=== PATIENT | female | born 1955 | race Caucasian/White ===

== ENCOUNTER 2018-05-05 09:33 | Emergency (ER) | payer BC ==
[~2018-05-05] VITALS: Ht 167.6 cm; Wt 81.6 kg
[2018-05-05] MEDS ORDERED: NKM (09:47)
--- NOTE | 2018-05-05 09:56 | Emergency Room Report ---
History of Present Illness General Chief Complaint: Lower Extremity Injury Source: Patient Present Illness HPI Patient presents with complaints of left ankle pain Reports that she was standing outside of a restaurant when she was turning and tripped over the curb falling to the ground Patient noticed increased swelling and pain to the left ankle on the outside aspect Patient has had multiple problems on that foot and ankle Denies any knee pain denies any other lapse of consciousness or upper extremity pain Pain is worse with ambulation and bearing weight this happened about an hour prior to arrival Allergies: Coded Allergies: No Known Allergies (Unverified , 05/05/18) Patient History Past Medical History: see triage record Pertinent Family History: none Last Menstrual Period: 15 years ago Now: No Reviewed Nursing Documentation: PMH: Agreed; PSxH: Agreed Nursing Documentation-PMH Past Medical History: No History, Except For Hx Cardiac Problems: No - osteoporosis Review of Systems All Other Systems: negative except mentioned in HPI Physical Exam Vital Signs Date Time Temp Pulse Resp B/P (MAP) Pulse Ox O2 Delivery O2 Flow Rate FiO2 05/05/18 09:42 97.7 79 16 138/87 94 Room Air Sp02 EP Interpretation: reviewed, normal General Appearance: well appearing, no apparent distress Head: normocephalic, atraumatic Eyes: bilateral eye PERRL, bilateral eye EOMI ENT: normal pharynx Neck: supple Respiratory: lungs clear, no retraction, no accessory muscle use Cardiovascular #1: regular rate, rhythm Gastrointestinal: non tender, soft Musculoskeletal: swelling - To the left ankle mild ecchymosis, neurovascularly intact Neurologic: alert, oriented x3 Skin: other - As above Lymphatic: no adenopathy Procedures Splinting Splinting : Consent: Verbal Pre-Made Type: aircast Splint: sugar-tong Pre-Proc Neuro Vasc Exam: normal Post-Proc Neuro Vasc Exam: normal Patient Tolerated: Well Complications: None Medical Decision Making Diagnostic Impression: Primary Impression: Ankle fracture ER Course Given the patient's history and examination x-ray imaging was obtained There is evidence of a distal fibular fracture Patient was provided with a splint nonweightbearing and requires close outpatient follow-up Other X-Ray Diagnostic Results Other X-Ray Diagnostic Results : X-Ray ordered: Left ankle # of Views/Limited Vs Complete: 3 View Indication: Pain EP Interpretation: Yes Interpretation: no dislocation, other - Distal fibular fracture, nondisplaced Impression: Other - Acute distal fibular fracture Electronically Signed by: Siria Waller DO Last Vital Signs Date Time Temp Pulse Resp B/P (MAP) Pulse Ox O2 Delivery O2 Flow Rate FiO2 05/05/18 09:42 97.7 79 16 138/87 94 Room Air Status: improved Disposition: HOME, SELF-CARE Condition: Improved Scripts Ibuprofen* (MOTRIN*) 600 Mg Tablet 600 MG ORAL Q8H PRN for For Pain, #20 TAB 0 Refills Prov: Siria Waller DO 05/05/18 Additional Instructions: Patient is provided with the discharge instructions notified to follow up with primary doctor in the next 2-3 days otherwise return to the er with any worsening symptoms. Please note that this report is being documented using [employer] technology. This can lead to erroneous entry secondary to incorrect interpretation by the dictating instrument. Siria Waller DO May 05, 2018 09:56
[2018-05-05] MEDS ORDERED: IBUPROFEN600 MG ORAL (10:31)
[2018-05-05 10:50] VITALS: BP 129/79
--- NOTE | 2018-05-05 15:35 | Diagnostic Imaging Report ---
Indication: Pain, status post fall Technique: 3 views of the left ankle Comparison: none Findings: There is a transverse nondisplaced fracture of the distal fibula. There is overlying soft tissue swelling. No tibial or talar fracture demonstrated. No other acute fractures. Joint spaces are preserved. Impression: Positive for distal fibular fracture Findings discussed by phone with Dr. Waller in the emergency room previously
== END 2018-05-05 11:00 | disposition home or self-care (01) ==
LOC: EMR 11:00
DX: S82.425A Nondisplaced transverse fracture of shaft of left fibula, initial encounter for closed fracture (principal); W01.0XXA Fall on same level from slipping, tripping and stumbling without subsequent striking against object, initial encounter; Y92.480 Sidewalk as the place of occurrence of the external cause
CPT/HCPCS: 29515; 99283